=== PATIENT | male | born 1985 | race Hispanic/Latino ===

== ENCOUNTER 2018-07-09 16:29 | Observation (INO) | payer SELFPAY ==
[~2018-07-09 16:29] MED LIST: Dexamethasone 20 MG/5 ML VIAL ONE; Ketorolac Tromethamine 30 MG/ML VIAL ONE; Ondansetron HCl/PF 4 MG/2 ML Vial ONE; PROPOFOL 200 MG/20 ML VIAL ONE
[2018-07-09] MEDS ORDERED: CEFAZOLIN/Water 2 GM/20 ML SYRINGE ONE (16:40)
[2018-07-09 16:51] LABS: #Basophils 0.1 thou/uL (0.0-0.2); #Eosinphils 0.1 thou/uL (0.0-0.7); #Lymphocytes 2.6 thou/uL (1.20-3.40); #Monocytes 0.5 thou/uL (0.11-0.59); #Neutrophils 5.6 thou/uL (1.40-6.50); %Eosinophils 0.9 % (0.0-10.0); %Lymphocytes 29.1 % (21.0-51.0); %Monocytes 5.8 % (0.0-10.0); %Neutrophils 63.2 % (42.0-75.0); Hemoglobin 14.6 g/dL (14.0-18.0); Mean Corpuscular HGB CONC 34.3 g/dL (32.0-36.0); Mean Corpuscular Hemoglobin 32.5 pg (27.0-31.0); Mean Corpuscular Volume 94.9 fL (78.0-98.0); Mean Platelet Volume 7.7 fL (7.4-10.4); Platelet Count 197 thou/uL (130-400); RBC Distribution Width 12.3 % (11.5-14.5); White Blood Cell (WBC) Count 8.8 thou/uL (4.8-10.8)
[2018-07-09] MEDS ORDERED: Morphine 4 MG/ML VIAL ONE (16:52)
--- NOTE | 2018-07-09 16:54 | RAD ---
2 VIEWS LEFT ANKLE: Date: 07/09/18 INDICATION: Left ankle trauma. FINDINGS: There is a lateral fracture/dislocation of the left ankle. There is a comminuted displaced fracture i nvolving the lateral malleolus. No definite medial malleolar or posterior malleolar fracture componen t is evident. However, would recommend repeat radiographs upon reduction to evaluate for possible med ial malleolar or posterior malleolar ankle fracture components. IMPRESSION: Fracture/dislocation of left ankle. POS: [facility]
[2018-07-09] MEDS ORDERED: Fentanyl 100 MCG/2 ML VIAL ONE ×4 (17:10→22:25)
[2018-07-09 17:11] LABS: ALT (SGPT) 32 U/L (8-55); AST (SGOT) 22 U/L (5-34); Albumin 4.1 g/dL (3.5-5.0); Alkaline Phosphatase 102 U/L (40-150); Anion Gap 11 mmol/L (10-20); BUN (Urea Nitrogen) 21 mg/dL (8.9-20.6); Bilirubin, Total 0.4 mg/dL (0.2-1.2); Calc. Creatinine Clearance 0 mL/min (70-130); Calcium 9.2 mg/dL (7.8-10.44); Carbon Dioxide 20 mmol/L (22-29); Chloride 108 mmol/L (98-107); Estimated GFR-MDRD 59; Globulin 3.1 g/dL (2.4-3.5); Glucose 110 mg/dL (70-105); Potassium 3.7 mmol/L (3.5-5.1); Protein, Total 7.2 g/dL (6.0-8.3); Sodium 135 mmol/L (136-145)
--- NOTE | 2018-07-09 17:12 | RAD ---
2 VIEWS LEFT KNEE: Date: 07/09/18 INDICATION: Fall with left knee pain. COMPARISON: None. FINDINGS: No acute fracture or subluxation seen involving the left knee. IMPRESSION: No acute osseous abnormality. POS: [facility]
[2018-07-09] MEDS ORDERED: PROPOFOL 20 ML ONE (17:17)
[2018-07-09] MEDS ORDERED: traMADol HCl 50 MG TAB PO PRN (18:13)
[2018-07-09] MEDS ORDERED: Cyclobenzaprine 10 MG TAB PO PRN (18:15)
[2018-07-09] MEDS ORDERED: Acetaminophen 500 MG TAB ONE (18:22)
[2018-07-09] MEDS ORDERED: Ondansetron HCl/PF 4 MG/2 ML Vial IVP PRN ×2 (18:22→21:39)
[2018-07-09] MEDS ORDERED: Dextrose 5% in Water 1,000 ML IV PRN (18:22)
[2018-07-09] MEDS ORDERED: Ondansetron ODT 4 MG TAB PO PRN (18:22)
[2018-07-09] MEDS ORDERED: Dextrose 50% Abboject 50 ML SYRINGE SLOW IVP PRN (18:22)
[2018-07-09] MEDS ORDERED: Adacel (T-DAP) 0.5 ML VIAL ONE (18:23)
[2018-07-09] MEDS ORDERED: traMADol HCl 50 MG TAB PO SCH (18:45)
[2018-07-09] MEDS ORDERED: Neomycin-Polymyxin 1 ML AMP ONE (19:01)
--- NOTE | 2018-07-09 19:08 | RAD ---
RADIOGRAPH LEFT ANKLE 2 VIEWS: 07/09/18 at 5:31 p.m. HISTORY: 32-year-old male status post acute traumatic fracture to the ankle. Status post reduction. COMPARISON: 07/09/18 at 4:29 p.m. FINDINGS: The severe lateral dislocation of the talus relative to the tibia and fibula, has been reduced. There is now approximately 20 to 30% lateral subluxation of the talus relative to the tibia. The severely laterally displaced lateral malleolus which was still articulating with the lateral aspect of the demarcus us, is in much closer proximity to the distal fibular shaft. Medial malleolar fracture, which was sev erely displaced, is in much closer proximity to the tibial metaphysis. The ankle is in a splint. IMPRESSION: Interval reduction of the traumatic, trimalleolar fracture/dislocation of the ankle, with interval im provement in the alignment. POS: JOSE
[2018-07-09] MEDS ORDERED: Promethazine HCl 25 MG/ML VIAL SLOW IVP PRN (21:39)
[2018-07-09] MEDS ORDERED: Promethazine HCl 25 MG/ML VIAL IM PRN (21:39)
[2018-07-09] MEDS ORDERED: HYDROmorphone 2 MG/ML VIAL SLOW IVP PRN (21:39)
[2018-07-09] MEDS ORDERED: Communication Order-Pharmacy FS SCH (22:00)
[2018-07-09] MEDS ORDERED: cefTRIAXone\\ROCEPHIN 2 GM in Sodium Chloride 0.9% 100 ML IVPB SCH (22:00)
[2018-07-09] MEDS ORDERED: HYDROmorphone 2 MG/ML VIAL ONE (22:02)
--- NOTE | 2018-07-09 23:11 | HP ---
DATE OF ADMISSION: 07/09/2018 TRAUMA ACTIVATION: Level 2. ATTENDING PHYSICIAN: Dr. Hurtado. HISTORY OF PRESENT ILLNESS: This is a 32-year-old male who presented to [facility] status post fa ll from ladder. Per patient, he was working on a ladder when it slipped and he fell landing on his l eft foot. There was obvious deformity and patient was noted to have an isolated open left ankle frac ture. He denies pain anywhere else. The fracture has been reduced in the emergency room and Orthope dic Surgery has been notified. Trauma Service was asked to admit. Upon my evaluation, the patient h as a chief complaint of 5/10 left ankle pain. ALLERGIES: None. HOME MEDICATIONS: Triumeq. MEDICAL HISTORY: Significant for depression, high cholesterol and HIV. PAST SURGICAL HISTORY: The patient denies. SOCIAL HISTORY: Patient drinks 2-3 beers approximately 2-3 times weekly. Denies tobacco or illicit drug use. FAMILY HISTORY: Significant for a sister with diabetes. Mother and grandmother with hypertension. REVIEW OF SYSTEMS: A 10-point review of systems was performed and negative except as indicated in th e HPI. PHYSICAL EXAMINATION: VITAL SIGNS: On evaluation, blood pressure 133/79, pulse 106, respirations 18, O2 sat 100%. GENERAL: Resting in bed in no acute distress. HEAD: Normocephalic, atraumatic. EYES: Pupils are PERRLA. Extraocular movements are intact. NECK: Supple. Trachea is midline. There is no midline tenderness to palpation. CHEST: Atraumatic, nontender to palpation. Normal work of breathing. Symmetric rise. CARDIOVASCULAR: Regular rate and rhythm. GASTROINTESTINAL: Abdomen is soft, atraumatic, nontender and nondistended. Bowel sounds are positiv e. BACK: Reported as being within normal limits with no midline tenderness to palpation. EXTREMITIES: Bilateral upper extremities within normal limits. Right lower extremity within normal limits. Left lower extremity, splint is in place. He has good capillary refill. Pulses are and sen sation intact. NEUROLOGIC: GCS is 15. No focal deficit is noted. LABORATORY DATA: WBC 8.8, hemoglobin 14.6, hematocrit 42.7, platelet count 197. Sodium 135, potassi um 3.5, chloride 108, carbon dioxide 20, BUN 21, creatinine 1.38, glucose 110, AST and ALT within nor mal limits. X-ray of the ankle with obvious displacement of the lateral malleolus. Post-reduction x -ray official read is pending which shows improvement in alignment of the fracture dislocation. X-ra y of the left knee was without bony fracture or dislocation. ASSESSMENT: 1. Status post fall from ladder approximately 7 feet. 2. Isolated open left ankle fracture dislocation. 3. Acute traumatic pain. 4. Human immunodeficiency virus. PLAN: Admit to Trauma Services. Orthopedic Surgery is evaluating the patient and plans for operativ e intervention to his ankle tonight. Perioperative pain management with p.o. and IV analgesics. Pos toperative PT and OT. Patient has received tetanus and Ancef in the emergency room. Plan for admiss ion was discussed with the patient and family at bedside. All questions were answered at the time of this dictation. Trauma attending has been notified of admission.
--- NOTE | 2018-07-09 23:42 | HP ---
CHIEF COMPLAINT: Left ankle pain. 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 He fell from approximately 6 feet up. He landed on his left ankle. He had an ankle deformity and laceration to the medial ankle. He present ed to the emergency department where he was found to have an open ankle fracture dislocation. He has received pain control. He has undergone closed reduction and splinting. He is currently more comfo rtable. No other injuries. No previous surgeries. PAST MEDICAL HISTORY: He denies active medical problems. PAST SURGICAL HISTORY: None. ALLERGIES: No known drug allergies. FAMILY MEDICAL HISTORY: Noncontributory. SOCIAL HISTORY: The patient denies tobacco or drug use. Occasional alcohol use. [facility]. PHYSICAL EXAMINATION: VITAL SIGNS: Stable. He is normotensive, alert and oriented. HEENT: Normocephalic, atraumatic. RESPIRATORY: Breathing comfortably. CARDIOVASCULAR: Pulses palpable and regular. ABDOMEN: Soft, nontender, nondistended. MUSCULOSKELETAL: The patient's left lower extremity has an intact splint. He has 2-second capillary refill. He reports normal sensation in the toes to light touch. He is able to flex and extend the toes. IMAGES: X-rays of the left ankle demonstrate a significantly shortened ankle fracture dislocation wi th lateral displacement of the talus. There was a comminuted and displaced fibula fracture. IMPRESSION: Open left ankle fracture dislocation. PLAN: At this point, the patient will need to go urgently to the operating room. He needs a thoroug h irrigation and debridement of his ankle wounds. He needs a reduction of the bones and fixation of the lateral malleolus to stabilize the ankle. We will plan for this tonight. He should remain n.p.o . He will continue pain control. He has been given intravenous antibiotics and we will continue thi s for at least 24 hours. Risks have been reviewed which do include infection, wound complication, ne rve or vascular injury, nonunion, need for hardware removal, and others.
[2018-07-09] MEDS: Famotidine 20 MG TAB PO SCH (23:44)
[2018-07-09] MEDS: Sodium Chloride 0.9% 1,000 ML IV SCH (23:52)
[2018-07-09] MEDS ORDERED: CEFAZOLIN/Water 2 GM/20 ML SYRINGE SLOW IVP SCH (23:59)
[2018-07-10] MEDS: Acetaminophen 500 MG TAB PO SCH ×3 (00:01→11:42)
[2018-07-10] MEDS: HYDROcodone/Acetaminophen 10/325 mg Tablet PO PRN ×2 (02:38→08:12)
--- NOTE | 2018-07-10 04:13 | OP ---
DATE OF PROCEDURE: 07/09/2018 OPERATIONS PERFORMED: 1. Open reduction and internal fixation of left bimalleolar ankle fracture dislocation. 2. Irrigation and debridement of left open ankle fracture. PREOPERATIVE DIAGNOSIS: Type 2 open bimalleolar left ankle fracture dislocation. POSTOPERATIVE DIAGNOSIS: Type 2 open bimalleolar left ankle fracture dislocation. COMPLICATIONS: None. ESTIMATED BLOOD LOSS: Minimal. SURGEON: Dean Lopez M.D. ANESTHESIA: General. IMPLANTS: Synthes 1/3 tubular plate with 6 screws and two 4.0 partially threaded cancellous screws w ere utilized. INDICATIONS: Mr. Flaherty is a 32-year-old male, who fell approximately 6 feet. He fractured his left ankle, he had a large medial ankle wound with dislocation. He was indicated for urgent operative silverio atment to include irrigation and debridement of his wounds with wound closure as well as open reducti on and internal fixation of the ankle fracture. Risks have been reviewed in detail. He has elected to proceed with the operation. DESCRIPTION OF OPERATION: Mr. Flaherty was identified in the preoperative holding area. His correct ex tremity was marked. He was carried to the operating room. He was positioned supine. General anesth esia was induced. A multidisciplinary timeout was performed. The left lower extremity was prepped a nd draped in sterile fashion. We began the procedure with irrigating the patient's medial wound thoroughly. This one was approxima tely 8 cm in length and spanned across the medial malleolus fracture. There was some gross contamina tion, which was removed carefully. We performed an excisional debridement using a knife to remove an y injured or nonviable appearing tissue. We trimmed the skin edges back to a bleeding healthy margin . At this point, again we thoroughly irrigated using a pulse lavage including the ankle joint and th e soft tissues. At this point, we reduced the medial malleolar ankle fracture with a reduction clamp. We placed a K- wire, holding the fracture position. We x-rayed the ankle, confirming that we had an anatomic reduct ion. We then placed two 4.0 partially threaded cancellous screws across the fracture site using x-ra y guidance. At this point, we thoroughly irrigated and closed our medial wound with 3-0 nylon suture in interrupt ed fashion. We now moved to the lateral ankle. We made an incision over the distal fibula extending proximally. We dissected down to the bony level. We thoroughly irrigated the hematoma. We cleared the bony edg es of the comminuted fibula fracture. We reduced the fracture using reduction clamps and then applie d a 6-hole Synthes 1/3 tubular plate. Multiple nonlocking screws were placed. Again, we took x-ray images confirming reduction. A stress view was done. There was no syndesmosis widening. Again, we irrigated and closed the wounds appropriately. We placed the patient in a splint and he was taken to the recovery room in good condition.
[2018-07-10] MEDS: Sodium Chloride 0.9% 1,000 ML IV SCH (04:25)
[2018-07-10 04:41] LABS: #Lymphocytes 0.8 thou/uL (1.20-3.40); #Monocytes 0.2 thou/uL (0.11-0.59); #Neutrophils 10.9 thou/uL (1.40-6.50); %Lymphocytes 6.6 % (21.0-51.0); %Neutrophils 91.3 % (42.0-75.0); Hemoglobin 12.6 g/dL (14.0-18.0); Mean Corpuscular HGB CONC 35.1 g/dL (32.0-36.0); Mean Platelet Volume 7.7 fL (7.4-10.4); Platelet Count 178 thou/uL (130-400); RBC Distribution Width 12.3 % (11.5-14.5); White Blood Cell (WBC) Count 11.9 thou/uL (4.8-10.8)
[2018-07-10 05:06] LABS: Anion Gap 13 mmol/L (10-20); BUN (Urea Nitrogen) 19 mg/dL (8.9-20.6); Calc. Creatinine Clearance 110 mL/min (70-130); Calcium 8.2 mg/dL (7.8-10.44); Carbon Dioxide 17 mmol/L (22-29); Chloride 110 mmol/L (98-107); Estimated GFR-MDRD 81; Glucose 144 mg/dL (70-105); Magnesium 1.6 mg/dL (1.6-2.6); Phosphorus 2.7 mg/dL (2.3-4.7); Potassium 4.1 mmol/L (3.5-5.1); Sodium 136 mmol/L (136-145)
[2018-07-10] MEDS: traMADol HCl 50 MG TAB PO SCH ×3 (05:22→11:42)
[2018-07-10] MEDS: CEFAZOLIN/Water 2 GM/20 ML SYRINGE SLOW IVP SCH ×2 (05:49→15:07)
--- NOTE | 2018-07-10 07:50 | RAD ---
RADIOGRAPH LEFT ANKLE 3 VIEWS: Date: 07/09/18 Time: 2058 hours HISTORY: 32-year-old male with acute traumatic injury of the left ankle. COMPARISON: 07/09/18 at 1731 hours. FINDINGS: Small field of view fluoroscopic spot images obtained with C-arm in the OR, with intrinsically low re solution of fine bony detail. The tibiotalar subluxation has been reduced, and the ankle mortise is n ow symmetrical. Two lag screws have been placed, fixating the now reduced medial malleolar fracture. Long metallic side plate with multiple screws now fixate the lateral malleolar fracture, now in anato mical alignment. Posteriorly displaced posterior malleolar fracture is visualized on the lateral view , where there is no metallic hardware. IMPRESSION: 1. trimalleolar fracture-dislocation of the left ankle. 2. status post open reduction and internal fixation, now with nearly-anatomical alignment. POS: JOSE
[2018-07-10] MEDS: Famotidine 20 MG TAB PO SCH (08:12)
[2018-07-10] MEDS ORDERED: Aspirin 81 mg Enteric Coated Tablet PO SCH (09:00)
--- NOTE | 2018-07-10 14:22 | ADD-HP ---
ADDENDUM CHIEF COMPLAINT: Left ankle pain. HISTORY: Mr. Flaherty is a 32-year-old man who was at work today. He fell off a scaffolding about 5 or 6 feet onto the ground. Most of his body landed on dirt but his left ankle on the sidewalk and he h ad immediate pain in that area. He was not knocked out and he does not complain of pain anywhere els e. He is feeling somewhat better since the ankle was splinted in the emergency room. PAST MEDICAL HISTORY: HIV. PAST SURGICAL HISTORY: None. SOCIAL HISTORY: Patient does not smoke, drink, or use illicit drugs. ALLERGIES: He has no known drug allergies. MEDICATIONS: His only medication is Triumeq for his HIV. REVIEW OF SYSTEMS: Ten-system review of systems is negative except per HPI. PHYSICAL EXAMINATION: Head-to-toe complete physical examination was performed personally. No other injuries were identified. He has normal capillary refill and normal sensation and movement of his to es. The splint was not taken down, but by report, he has an open ankle fracture. IMAGING: Images are reviewed and I agree with the written report. He has a trimalleolar fracture di slocation of the left ankle, which is better aligned since undergoing reduction and splinting. Knee x-rays were unremarkable. ASSESSMENT: Open fracture of the left ankle. Orthopedics has seen the patient and he is splinted cu rrently he is comfortable and is awaiting operative repair. He received Ancef, tetanus prophylaxis, and pain medication in the emergency room.
[2018-07-10 15:56] VITALS: BP 118/70; TEMP 98.7
--- NOTE | 2018-07-10 22:52 | DIS ---
DATE OF ADMISSION: 07/09/2018 DATE OF DISCHARGE: 07/10/2018 ADMISSION DIAGNOSES: 1. Status post fall from ladder. 2. Open left ankle fracture. 3. Acute traumatic pain. 4. History of human immunodeficiency virus. DISCHARGE DIAGNOSES: 1. Status post fall from ladder. 2. Open left ankle fracture. 3. Acute traumatic pain. 4. History of human immunodeficiency virus. PROCEDURES: On 07/09/2018, open reduction internal fixation of left bimalleolar ankle fracture dislo cation and irrigation and debridement of the same with Dr. Lopez. HOSPITAL COURSE: Donaldo Flaherty is a 32-year-old male who presented to [facility] status post fall fr om ladder at work. The patient was evaluated in the emergency room and found to have the above injur ies. The ankle was reduced in the emergency room and the patient was taken to the operating room lat er that evening for intervention. Postoperatively, the patient did well. He completed a short cours e of IV antibiotics. Pain was controlled via p.o. analgesics and he was able to mobilize per physica l therapy's instructions. He was medically stable for discharge on 07/10/2018. DISCHARGE DISPOSITION: Home. DISCHARGE CONDITION: Good. PHYSICAL EXAMINATION: VITAL SIGNS: Temperature 98.7, pulse 95, respirations 16, O2 sat 96% on room air, blood pressure 11 8/70. GENERAL: Well-developed young male in no acute distress, resting in bed. PULMONARY: Normal work of breathing, symmetric rise. CARDIOVASCULAR: Regular rate and rhythm. GASTROINTESTINAL: Abdomen is soft, nontender, nondistended. MUSCULOSKELETAL: Moves all extremities x4. NEUROLOGIC: No focal deficit is noted. DISCHARGE INSTRUCTIONS: Discharge instructions were provided to the patient, who vocalizes gosiaan madi. He is nonweightbearing to the left lower extremity. He should keep his dressing clean, dry, a nd intact. DISCHARGE MEDICATIONS: Patient was discharged on [id number] Tylenol and ibuprofen, ASA 81 mg b .i.d., Bactrim b.i.d. x5 days, he was additionally provided a prescription for Rhododendron for breakthrough pain per Orthopedic Surgery. He should resume his home medications. FOLLOWUP APPOINTMENTS: The patient should follow up with his primary care provider as needed. He sh ould follow up with Orthopedic Surgery, Dr. Lopez in approximately 7-10 days. He does not need t o follow up formally with Trauma Services, but may call our office with any questions. This is merel y a summary of the patient's hospitalization. For more in depth information, please see his medical record in its entirety.
== END 2018-07-10 16:42 | disposition home or self-care (01) ==
LOC: ERS 16:29 → SURG A 16:50 → SDC/OP 18:26 → SURG A 18:52
PROVIDERS: ADMIT Surgery; ATTEND Orthopaedic Surgery
PROC: 0QSH0ZZ Reposition Left Tibia, Open Approach (ICD-10-PCS; principal; 2018-07-09)
PROC: 0QSK0ZZ Reposition Left Fibula, Open Approach (ICD-10-PCS; 2018-07-09)
PROC: 0HBNXZZ Excision of Left Foot Skin, External Approach (ICD-10-PCS; 2018-07-09)
DX: S82.842B Displaced bimalleolar fracture of left lower leg, initial encounter for open fracture type I or II (principal); Z21 Asymptomatic human immunodeficiency virus [HIV] infection status; E78.00 Pure hypercholesterolemia, unspecified; W11.XXXA Fall on and from ladder, initial encounter
CPT/HCPCS: 27762; 36415; 76001; 80048; 80053; 83735; 84100; 85025; 90471; 90715; 96361; 96374; 96375; 96376; 99152; C1713; G0378; G0390; G8978-GP-CL; G8979-GP-CJ; G8987-GO-CJ; G8988-GO-CI; J0696; J1100; J1170; J1885; J2270; J2405; J2704; J3010; J7050